=== PATIENT | male | born 1995 | race Two or more races ===

== ENCOUNTER 2021-06-09 00:04 | Emergency (ER) | payer OTHER ==
[~2021-06-09] VITALS: Ht 165.1 cm; Wt 113.4 kg
[2021-06-09 02:35] VITALS: BP 139/82
== END 2021-06-09 03:13 | disposition home or self-care (01) ==
LOC: EDBD 00:04 → ER 00:04
DX: S13.4XXA Sprain of ligaments of cervical spine, initial encounter (principal); S43.401A Unspecified sprain of right shoulder joint, initial encounter; S09.90XA Unspecified injury of head, initial encounter; W20.8XXA Other cause of strike by thrown, projected or falling object, initial encounter; Y93.89 Activity, other specified; Y92.89 Other specified places as the place of occurrence of the external cause; Y99.0 Civilian activity done for income or pay
CPT/HCPCS: 70450; 72125